=== PATIENT | female | born 1985 | race Caucasian/White ===

== ENCOUNTER 2020-06-28 16:19 | Emergency (ER) | payer BC, OTHER ==
[2020-06-28 16:23] VITALS: BP 125/85; PULSE 77; TEMP 98.5; BMI 26.6
--- NOTE | 2020-06-28 16:26 | PDOC ---
Rapid Medical Evaluation Chief Complaint: Lightheaded Time Seen by Provider: 06/28/20 16:21 Medical Evaluation: Allergies Allergy/AdvReac Type Severity Reaction Status Date / Time No Known Allergies Allergy Verified 06/28/20 16:24 Vital Signs Temp Pulse Resp BP Pulse Ox 98.5 F 77 19 125/85 99 06/28/20 16:21 06/28/20 16:21 06/28/20 16:21 06/28/20 16:21 06/28/20 16:21 06/28/20 16:24 CC: ear pain, dizzy and headache, was placed on abx and meclizine with no improvement, no rec illness, travel, swimming, no nasal congestion or visual changes/ weakness ExaM: vss, eomi, perrl Plan: head ct, labs Discharge Disposition - Diagnosis Dizziness - Referrals - Patient Instructions - Post Discharge Activity
[2020-06-28] MEDS ORDERED: SODIUM CHLORIDE 1,000 ML IV STA (16:58)
--- NOTE | 2020-06-28 16:58 | PDOC ---
History of Present Illness - General Chief Complaint: Lightheaded Stated Complaint: DIZZINESS Time Seen by Provider: 06/28/20 16:21 History Source: Patient Exam Limitations: No Limitations - History of Present Illness Initial Comments: 06/28/20 16:53 HISTORY OF PRESENT ILLNESS: 34-year-old woman with past medical history of vertigo presents emergency department for evaluation of bilateral ear pain and intermittent dizziness over the past 7 days. Patient was seen and evaluated by her primary doctor and started on loratadine which had minimal effect on her symptoms. She then had a telehealth visit with her primary doctor who started her on meclizine and Augmentin which she has been taking for 3 days without any improvement of symptoms. Patient is concerned that symptoms have not improved at all over this time. She reports does have frontal headache which she descri bes as a pressure but denies any blurry vision, nausea, vomiting, nasal drainage, hearing loss or discharge from her ears. No recent travel or sick contacts. PAST MEDICAL HISTORY: Vertigo SURGICAL HISTORY: Denies ALLERGIES: No known drug allergies REVIEW OF SYSTEMS General/Constitutional: Denies fever or chills. Denies weakness, weight change. HEENT: See HPI Cardiovascular: Denies chest pain or shortness of breath. Respiratory: Denies cough, wheezing, or hemoptysis. Gastrointestinal: Denies nausea, vomiting, diarrhea or constipation. Denies rectal bleeding. Genitourinary: Denies dysuria, frequency, or change in urination. Musculoskeletal: Denies joint or muscle swelling or pain. Denies neck or back pain. Skin and breasts: Denies rash or easy bruising. Neurologic: Denies headache, vertigo, loss of consciousness, or loss of sensation. Psychiatric: Denies depression or anxiety. Endocrine: Denies increased thirst. Denies abnormal weight change. Hematologic/Lymphatic: Denies anemia, easy bleeding, or history of blood clots. Allergic/Immunologic: Denies hives or skin allergy. Denies latex allergy. PHYSICAL EXAM General Appearance: Well-appearing, appropriately dressed. No apparent distress, no intoxication. HEENT: EOMI, PERRLA, normal ENT inspection, normal voice, TMs normal, pharynx normal. No conjunctival pallor. No photophobia, scleral icterus. No sinus tenderness appreciated. Neck: Supple. Trachea midline. No tenderness, rigidity, carotid bruit, stridor, lymphadenopathy, or thyromegaly. Respiratory/Chest: Lungs CTAB. No shortness of breath, chest tenderness, resp iratory distress, accessory muscle use. No crackles, rales, rhonchi, stridor, wheezing, dullness Cardiovascular: RRR. S1, S2. No JVD, murmur, bradycardia, tachycardia. Gastrointestinal/Abdominal: Normal bowel sounds. Abdomen soft, non-distended. No tenderness or rebound tenderness. No organomegaly, pulsatile mass, guarding, hernia, hepatomegaly, splenomegaly. Lymphatic: No adenopathy, tenderness. Musculoskeletal/Extremities: Normal inspection. FROM of all extremities, normal capillary refill. Pelvis Stable. No CVA tenderness. No tenderness to extremities, pedal edema, swelling, erythema or deformity. Integumentary: Appropriate color, dry, warm. No cyanosis, erythema, jaundice or rash Neurologic: fire regulator II-XII intact. Fully oriented, alert. Appropriate mood/affect. Motor strength 5/5. No appreciable EOM palsy, facial droop or sensory deficit. Normal finger-nose testing. No pronator drift appreciated. Gait is normal. Past History - Medical History Allergies/Adverse Reactions: Allergies Allergy/AdvReac Type Severity Reaction Status Date / Time No Known Allergies Allergy Verified 06/28/20 16:24 Home Medications: Ambulatory Orders NK [No Known Home Medication] 06/28/20 Asthma: No Cancer: No Cardiac Disorders: No COPD: No Diabetes: No HTN: No Seizures: No Thyroid Disease: No Other medical history: Vertigo - Reproductive History Is Patient Now?: No - Psycho-Social/Smoking History Smoking History: Never smoked Information on smoking cessation initiated: No - Substance Abuse Hx (Audit-C & DAST Scrn) How often the patient has a drink containing alcohol: Never Score: In Men: 4 or > Positive; In Women: 3 or > Positive: 0 Screen Result (Pos requires Nsg. Audit-10AR): Negative In the last yr the pt used illegal drug/Rx for NonMed reason: No Score: Yes response is considered Positive: 0 Screen Result (Positive result requires Nsg. DAST-10): Negative *Physical Exam - Vital Signs Last Vital Signs Temp Pulse Resp BP Pulse Ox 98.5 F 77 19 125/85 99 06/28/20 16:21 06/28/20 16:21 06/28/20 16:21 06/28/20 16:21 06/28/20 16:21 ED Treatment Course - LABORATORY CBC & Chemistry Diagram: 06/28/20 17:00 06/28/20 17:00 Medical Decision Making - Medical Decision Making 06/28/20 16:56 A/P: 34-year-old woman with ear pain, sinus pressure and dizziness over the past 7 days not responsive to antibiotics, antihistamines Physical exam is unremarkable Orders per RME Normal saline 1 L IV bolus Ativan 1 mg IV push Reassess 06/28/20 18:51 Laboratory Tests 06/28/20 06/28/20 06/28/20 17:00 17:00 17:00 WBC 7.5 RBC 4.40 Hgb 14.3 Hct 41.2 D MCV 93.6 MCH 32.6 MCHC 34.8 RDW 12.9 D Plt Count 291 D MPV 9.5 Absolute Neuts (auto) 4.6 Neutrophils % 61.3 Lymphocytes % 27.3 D Monocytes % 7.5 Eosinophils % 3.1 D Basophils % 0.8 Nucleated RBC % 0 Sodium 140 Potassium 4.1 Chloride 106 Carbon Dioxide 28 Anion Gap 6 L BUN 9.1 Creatinine 0.8 Est GFR (CKD-EPI)AfAm 111.48 Est GFR (CKD-EPI)NonAf 96.19 Random Glucose 82 Calcium 8.9 Magnesium 2.1 Total Bilirubin 0.2 AST 24 ALT 32 Alkaline Phosphatase 74 Total Protein 7.6 Albumin 3.9 Urine Color Yellow Urine Appearance Clear Urine pH 8.0 Ur Specific [place] 1.009 L Urine Protein Negative Urine Glucose (UA) Negative Urine Ketones Negative Urine Blood 1+ H Urine Nitrite Negative Urine Bilirubin Negative Urine Urobilinogen 0.2 Ur Leukocyte Esterase Negative Urine WBC (Auto) 5 Urine RBC (Auto) 6 Urine Casts (Auto) 1 U Epithel Cells (Auto) 35 Urine Bacteria (Auto) 2 Urine HCG, Qual Negative CT scan is read by Dr. Larson: No CT evidence of acute intracranial pathology. Patient feels better after receiving Ativan. As all symptoms are resolved and patient has normal imaging and laboratory testing I feel it is safe to discharge home to continue previously prescribed medication and follow-up with her primary doctor. I discussed the physical exam findings, ancillary test results and final diagnoses with the patient. I answered all of the patient's questions. The patient was satisfied with the care received and felt comfortable with the discharge plan and treatment plan. The patient will call their primary care physician within 24 hours to arrange follow-up and will return to the Emergency Department with any new, persistent or worsening symptoms. Portions of this note have been documented using voice recognition software. As a result, errors may occur in the publicity manager process. Effort has been made to correct all grammatical and publicity manager error, but some may have been missed which may produce sporadic inaccurate publicity manager or nonsensical phrases. Discharge - Discharge Information Problems reviewed: Yes Clinical Impression/Diagnosis: Vertigo Condition: Fair Disposition: HOME - Admission No - Follow up/Referral Referrals: Rj Ochoa MD [Staff Physician] - - Patient Discharge Instructions Additional Instructions: You received Ativan today in the emergency department. This may show positive on drug test for benzodiazepines. Continue all previously prescribed medication. You have been given a referral for an ENT specialist. Call to schedule an appointment for reevaluation of your symptoms. Your emergency department visit is incomplete to you follow-up with your primary doctor. Return to the emergency department any new or worsening symptoms. Thank you very much for choosing us to provide your emergent healthcare needs. - Post Discharge Activity Work/Back to School Note: Back to Work
[2020-06-28] MEDS ORDERED: LORazepam 2 MG/ML SDV VIAL ONE (17:08)
[2020-06-28 17:27] LABS: BASO % 0.8 % (0-2.0); EOS % 3.1 % (0-4.5); HEMATOCRIT 41.2 % (32.4-45.2); HEMOGLOBIN 14.3 GM/dL (10.7-15.3); LYMPH % 27.3 % (8-40); MCH 32.6 pg (25.7-33.7); MCHC 34.8 g/dl (32.0-36.0); MEAN CELL VOLUME 93.6 fl (80-96); MEAN PLT VOLUME 9.5 fl (7.5-11.1); MONO % 7.5 % (3.8-10.2); NEUT % 61.3 % (42.8-82.8); PLATELET COUNT 291 K/MM3 (134-434); RDW 12.9 % (11.6-15.6); WHITE BLOOD COUNT 7.5 K/mm3 (4.0-10.0)
[2020-06-28 17:52] LABS: EPI CELLS 35 /uL (0-25.1); HCG,QUALITATIVE URINE Negative; HYALINE CASTS 1 /uL (0-3.1); URINE APPEARANCE CLEAR; URINE BACTERIA 2 /uL (0-1359); URINE BILIRUBIN NEGATIVE (NEGATIVE); URINE COLOR YELLOW; URINE GLUCOSE (UA) NEGATIVE (NEGATIVE); URINE KETONE NEGATIVE (NEGATIVE); URINE LEUK ESTERASE NEGATIVE (NEGATIVE); URINE NITRITE NEGATIVE (NEGATIVE); URINE PROTEIN NEGATIVE (NEGATIVE); URINE RBC 6 /uL (0-23.9); URINE UROBILINOGEN 0.2 mg/dL (0.2-1.0); URINE WBC 5 /uL (0-25.8)
[2020-06-28 17:54] LABS: ALBUMIN 3.9 g/dl (3.4-5.0); BILIRUBIN,TOTAL 0.2 mg/dL (0.2-1); BLOOD UREA NITROGEN 9.1 mg/dL (7-18); CALCIUM 8.9 mg/dL (8.5-10.1); CREATININE 0.8 mg/dL (0.55-1.3); MAGNESIUM 2.1 mg/dL (1.8-2.4); POTASSIUM 4.1 mmol/L (3.5-5.1); TOT PROT 7.6 g/dl (6.4-8.2)
== END 2020-06-28 19:10 | disposition home or self-care (01) ==
LOC: JER 16:19
PROC: 3E033NZ Introduction of Analgesics, Hypnotics, Sedatives into Peripheral Vein, Percutaneous Approach (ICD-10-PCS; principal; 2020-06-28)
PROC: 3E0337Z Introduction of Electrolytic and Water Balance Substance into Peripheral Vein, Percutaneous Approach (ICD-10-PCS; 2020-06-28)
DX: H81.10 Benign paroxysmal vertigo, unspecified ear (principal); R42 Dizziness and giddiness
CPT/HCPCS: 36415; 70450-TC; 80053; 81003; 83735; 84703; 85025; 99284-25